=== PATIENT | male | born 1935 | race Caucasian/White ===

== ENCOUNTER 2016-07-15 18:56 | Emergency (ER) | payer MEDICARE, BC ==
[2016-07-15] MEDS ORDERED: DIPHTH,PERTUSS(ACELL),TET VAC 0.5 ML VIAL IM ONE ×2 (19:49→20:18)
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
--- OUTSIDE RECORDS SUMMARY | 2016-07-15 19:50 | XMS REPORT | Continuity of Care Document ---
:1935 Author Organization [facility] ([facility]) [place] [address] Phone [phone] Care Team Providers Name Role Phone Suresh Delarosa Primary Care Provider [phone] Source Comments This disclosure is being made pursuant to the Care Everywhere program, applicable federal and state laws, and may not contain all informaitonavailable regarding this patient.[facility] ([facility]) Active Allergies and Adverse Reactions Allergen Noted Date Severity Reactions Comments Iodinated Contrast Media - 12/11/2015 OTHER When pt had contrast his Oral And Iv Dye kidney function "decreased quite a bit" per patient and his . Current Medications Prescription Sig. Disp. Refills Start Date End Date Status rosuvastatin (CRESTOR) 10 Take 5 mg by Active mg tablet mouth every evening. lisinopril 20 mg tablet Take 20 mg by Active mouth 2 times daily. MULTIVITAMIN PO Take by mouth Active daily. ketorolac 0.4 % instill 1 Drop 1 Bottle 4 04/03/2011 Active ophthalmic solution onto the left eye 4 times daily. Indications: Post-Op Ocular Inflammation clopidogrel 75 mg tablet Take 75 mg by Active mouth daily. albuterol 90 Use 2 Puffs by Active mcg/Actuation inhaler inhalation. amiodarone 200 mg tablet Take 200 mg by 07/18/2015 Active mouth. 7 aspirin 81 mg EC tablet Take 81 mg by Active mouth. clindamycin 300 mg 05/22/2015 Active capsule furosemide 40 mg tablet Take 40 mg by Active mouth. hydrochlorothiazide 25 mg TAKE ONE TABLET 11/11/2015 Active tablet DAILY insulin lispro (HumaLOG) Inject 12 Units Active 100 unit/mL injection subcutaneously. vial nitroglycerin 0.2 mg/hr Apply 1 Patch on 11/21/2015 Active patch the skin. 7 rivaroxaban (XARELTO) 15 Take 15 mg by Active mg tablet mouth. SUPPLY TRUETEST blood 05/26/2015 Active glucose test strip insulin glargine (LANTUS) Inject 19 Units Active 100 unit/mL injection subcutaneously. vial isosorbide mononitrate 60 Take 60 mg by Active mg CR tablet mouth. metoPROLol tartrate 50 mg Take 50 mg by 07/18/2015 Active tablet mouth. ranolazine (RANEXA) 500 Take 500 mg by Active mg XR tablet mouth. EASY TOUCH 31 X 5/16 " Use as directed 5 10/19/2015 Active ndle daily with insulin. Dx E11.65 tamsulosin 0.4 mg capsule Take 0.4 mg by 11 11/12/2015 Active mouth at bedtime. finasteride 5 mg tablet Take 5 mg by 11/12/2015 Active mouth at bedtime. hydrochlorothiazide 25 mg 25 mg daily. 3 11/11/2015 Active tablet Active Problems Problem Noted Date AVB (atrioventricular block) 04/21/2016 Chronic atrial fibrillation 04/21/2016 Diabetes 05/21/2015 Coronary artery disease 05/21/2015 Paroxysmal VT, non sustained 05/21/2015 Bilateral carotid bruits 05/21/2015 Bi-ventricular pacemaker in situ 03/06/2011 CHF (congestive heart failure) 03/06/2011 IDDM (insulin dependent diabetes mellitus) 03/06/2011 HTN (hypertension) 03/06/2011 HLD (hyperlipidemia) 03/06/2011 Nuclear sclerosis 03/06/2011 Most Recent Encounters Date Type Specialty Providers Description 07/08/2016 Telephone Heart and Vascular Giuliano Samuel MD Chief Comp: Other 04/21/2016 Office Visit Heart and Vascular Glenna Wilkinson [employer]GLISH [employer] Dx: Bi-ventricular Giuliano Samuel MD pacemaker in situ (Primary Dx) Social History Tobacco Use Types Packs/Day Years Used Date Former Smoker Alcohol Use Drinks/Week oz/Week Comments Yes social Last Filed Vital Signs Vital Sign Reading Time Taken Blood Pressure 134/60 04/21/2016 10:20 AM REFORMATORY ATTENDANT Pulse 68 04/21/2016 10:20 AM REFORMATORY ATTENDANT Temperature 36.2 C (97.2 F) 04/29/2011 7:37 AM REFORMATORY ATTENDANT Respiratory Rate 20 04/29/2011 7:45 AM REFORMATORY ATTENDANT Height 1.854 m (6' 0.99") 04/21/2016 10:20 AM REFORMATORY ATTENDANT Weight 97.07 kg (214 lb) 04/21/2016 10:20 AM REFORMATORY ATTENDANT Body Mass Index 28.24 04/21/2016 10:20 AM REFORMATORY ATTENDANT Oxygen Saturation 100% 04/29/2011 7:45 AM REFORMATORY ATTENDANT Plan of Care Date Type Specialty Providers Description 11/17/2016 Appointment Heart and Vascular Giuliano Samuel MD Chief Comp: Patient [address] [place] [address] Visit [phone] (Fax) 12/17/2016 Appointment Ophthalmology - Lalito Crockett MD Chief Comp: Patient Specialty [address] [place] [address] Visit [phone] (Fax) Health Maintenance Due Date Last Done Comments Hepatitis B Vaccine (1 of 3 - 1935 Primary Series) Tdap Vaccine 1946 DIABETIC: Cholesterol 1952 Diabetic: Hdl 1952 DIABETIC: Hemoglobin A1C 1952 Diabetic: Ldl 1952 DIABETIC: Microalbumin 1952 DIABETIC: Triglycerides 1953 Td Vaccine 1953 Colonoscopy 12/03/1984 Zoster Vaccine 1994 Pneumococcal Vaccine (1 of 2 12/05/1999 - PCV13) DIABETIC: Foot Exam 04/21/2011 Influenza Vaccine: Seasonal 12/02/2015 (#1) [facility] Annual Coding Diabetes 05/03/2016 12/11/2015, Additional history exists without Complication 05/21/2015, 03/06/2011 DIABETIC: Retinal Eye Exam 12/10/2016 12/11/2015 Results from Last 3 Months Not on file
--- OUTSIDE RECORDS SUMMARY | 2016-07-15 19:51 | XMS REPORT | Summary of Care ---
:1935 Author Organization [facility] Address [address] [place] [address] Care Team Providers Name Role Phone Suresh Delarosa Primary Care Physician Encounter Date(s): 10/01/15 - 10/01/15 [facility], [address] [place] [id number] Discharge Diagnosis: Hypertension Discharge Diagnosis: DM - Diabetes mellitus Discharge Disposition: Discharged to Home or Self Care Attending Physician: Suresh Delarosa MD Referring Physician: Suresh Delarosa MD Vital Signs No data available for this section Problem List Condition Effective Dates Status Health Status Informant stable Angina pectoris(Confirmed) Active bilateral Carotid bruit(Confirmed) Active transient CHF - Congestive heart Active failure(Confirmed) DM - Diabetes mellitus(Confirmed) Active 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) Hyperlipidemia(Confirmed) Active Hypertension(Confirmed) Active PVD - Peripheral vascular Active disease(Confirmed) Allergies, Adverse Reactions, Alerts Substance Reaction Severity Status contrast media (iodine-based) Active Medications albuterol 2.5 mg/3 mL (0.083%) inhalation solution 3 mL, Inhale, QID, 0 Refill(s) Start Date: 09/11/13 Status: Orderedaspirin 81 mg oral tablet 1 tab(s), Oral, Daily, 0 Refill(s) Start Date: 09/11/13 Status: OrderedAzithromycin 5 Day Dose Pack 250 mg oral tablet 1 packet(s), Oral, Per Package Label, as directed on package labeling, # 6 tab(s ), 0 Refill(s), Start Date: 09/22/14 10:39:00 CDT, Pharmacy: [place], [place] Special Instructions: as directed on package labeling Start Date: 09/22/14 Stop Date: 11/28/14 Status: DiscontinuedCentrum Silver oral tablet 1 tab(s), Oral, Daily, 0 Refill(s) Start Date: 09/11/13 Status: OrderedCrestor 10 mg oral tablet 1 tab(s), Oral, Daily, # 21 tab(s), 0 Refill(s), Start Date: 03/26/14 10:31:00 INTERNATIONAL LOGISTICS MANAGER, samples given to patient (Rx), [id number], 07/30/16 Start Date: 03/26/14 Status: OrderedCrestor 10 mg oral tablet 1 tab(s), Oral, Daily, # 30 tab(s), 0 Refill(s), Start Date: 03/26/14 10:30:00 INTERNATIONAL LOGISTICS MANAGER Start Date: 03/26/14 Stop Date: 03/26/14 Status: DiscontinuedCrestor 10 mg oral tablet 1 tab(s), Oral, Daily, # 7 tab(s), 0 Refill(s), Start Date: 03/26/14 10:30:00 INTERNATIONAL LOGISTICS MANAGER, samples given to patient (Rx), [id number], 12/31/15 Start Date: 03/26/14 Status: OrderedCrestor 10 mg oral tablet 1 tab(s), Oral, Daily, 0 Refill(s) Start Date: 09/11/13 Stop Date: 03/26/14 Status: Discontinueddiltiazem 180 mg/24 hours oral capsule, extended release 1 cap(s), Oral, Daily, 0 Refill(s) Start Date: 09/11/13 Stop Date: 03/21/14 Status: Discontinuedfinasteride 5 mg oral tablet 1 tab(s), Oral, HS, # 1 tab(s), 1 Refill(s), Start Date: 09/04/14 14:50:55 CDT, Pharmacy: [place], [place] Start Date: 09/04/14 Stop Date: 11/05/14 Status: Completedfinasteride 5 mg oral tablet 1 tab(s), Oral, HS, # 30 tab(s), 11 Refill(s), Start Date: 11/05/14 11:05:09 CDT , Pharmacy: [place], [place] Start Date: 11/05/14 Status: Orderedfinasteride 5 mg oral tablet 1 tab(s), Oral, HS, # 30 tab(s), 11 Refill(s), Start Date: 09/08/13 16:49:00 CDT , Pharmacy: [facility] Start Date: 09/08/13 Stop Date: 09/04/14 Status: Completedglimepiride 4 mg oral tablet 1 tab(s), Oral, BID, 0 Refill(s) Start Date: 09/11/13 Stop Date: 10/25/13 Status: Discontinuedglimepiride 4 mg oral tablet 1 tab(s), Oral, BID, # 180 tab(s), 1 Refill(s), Start Date: 04/19/14 15:17:24 INTERNATIONAL LOGISTICS MANAGER, Pharmacy: [place], [place] Start Date: 04/19/14 Stop Date: 09/18/14 Status: Discontinuedglimepiride 4 mg oral tablet 1 tab(s), Oral, BID, # 180 tab(s), 1 Refill(s), Start Date: 10/25/13 15:56:00 CDT, Pharmacy: [facility] Start Date: 10/25/13 Stop Date: 04/19/14 Status: CompletedHumaLOG KwikPen 100 units/mL subcutaneous solution See Instructions, SS with ac coverage: 70-149-7 units 150-199-9 units 200- 249-11 units 250-299-13 units 300-349-15 units 350-399-17 units, # 10 mL, 5 Refill(s), Start Date: 10/01/15 11:39:00 CDT Special Instructions: SS with ac coverage: 70-149-7 units 150-199-9 units 200- 249-11 units 250-299-13 units 300-349-15 units 350-399-17 units Start Date: 10/01/15 Status: OrderedHumaLOG KwikPen 100 units/mL subcutaneous solution See Instructions, SS with ac coverage: BS<150 - 0 units, BS 150-200 4 units, BS 201-250 6 units BS 251-300 8 units, BS 301-350 10 units, BS 351-400 12 units, # 10 mL, 11 Refill(s), Start Date: 09/18/14 15:31:00 CDT, [facility] Special Instructions: SS with ac coverage: BS<150 - 0 units, BS 150-200 4 units , BS 201-250 6 units BS 251-300 8 units, BS 301-350 10 units, BS 351-400 12 units Start Date: 09/18/14 Stop Date: 10/01/15 Status: Discontinuedhydrochlorothiazide 25 mg oral tablet 1 tab(s), Oral, Daily, 0 Refill(s) Start Date: 09/11/13 Status: Orderedinsulin glargine 100 units/mL subcutaneous solution 15 units, Subcutaneous, Daily, 0 Refill(s), Start Date: 09/11/13 10:45:00 CDT Start Date: 09/11/13 Stop Date: 03/26/14 Status: DiscontinuedInsulin Pen [place] 07/16" 31G 300 Pen [place], Subcutaneous, TID, # 3 boxes, 0 Refill(s), Pharmacy: [place], [place], Supply Start Date: 09/18/14 Stop Date: 12/17/14 Status: Orderedisosorbide mononitrate 120 mg oral tablet, extended release 0.5 tab, Oral, BID, # 30 tab(s), 5 Refill(s), Start Date: 09/16/15 14:16:43 CDT , Pharmacy: [place] Start Date: 09/16/15 Status: Orderedisosorbide mononitrate 120 mg oral tablet, extended release 0.5 tab, Oral, BID, # 30 tab(s), 5 Refill(s), Start Date: 02/07/15 16:33:55 CDT , Pharmacy: [place] Start Date: 02/07/15 Stop Date: 09/16/15 Status: Completedisosorbide mononitrate 120 mg oral tablet, extended release 0.5 tab, Oral, BID, # 30 tab(s), 5 Refill(s), Start Date: 06/18/14 16:13:00 INTERNATIONAL LOGISTICS MANAGER , Pharmacy: [place] Start Date: 06/18/14 Stop Date: 02/07/15 Status: Completedisosorbide mononitrate 60 mg oral tablet, extended release 1.5 tab(s), Oral, BID, 0 Refill(s) Start Date: 09/11/13 Stop Date: 06/18/14 Status: DiscontinuedLantus 100 units/mL subcutaneous solution 19 units, Subcutaneous, Daily, dosage increase, # 10 mL, 5 Refill(s), Start Date : 08/21/14 17:47:00 CDT, Pharmacy: [place], [place] Special Instructions: dosage increase Start Date: 08/21/14 Stop Date: 03/14/15 Status: DiscontinuedLantus 100 units/mL subcutaneous solution 10 units, Subcutaneous, Daily, # 10 mL, 0 Refill(s), Start Date: 08/21/14 17:47: 00 CDT Start Date: 08/21/14 Stop Date: 08/21/14 Status: DiscontinuedLantus Solostar Pen 100 units/mL subcutaneous solution 19 units, Subcutaneous, Daily, # 15 mL, 5 Refill(s), Start Date: 03/14/15 10:28: 00 INTERNATIONAL LOGISTICS MANAGER, Pharmacy: [place] Start Date: 03/14/15 Status: OrderedLantus Solostar Pen 100 units/mL subcutaneous solution 19 units, Subcutaneous, Daily, # 3 mL, 0 Refill(s), Start Date: 03/14/15 10:28: 00 INTERNATIONAL LOGISTICS MANAGER Start Date: 03/14/15 Stop Date: 03/14/15 Status: DiscontinuedLantus Solostar Pen 100 units/mL subcutaneous solution 19 units, Subcutaneous, Daily, dosage increase, # 15 mL, 0 Refill(s), Start Date : 04/06/14 15:28:25 INTERNATIONAL LOGISTICS MANAGER, [id number], 08/30/16 Special Instructions: dosage increase Start Date: 04/06/14 Stop Date: 08/20/14 Status: CompletedLantus Solostar Pen 100 units/mL subcutaneous solution 0.1 mL, Subcutaneous, Daily, # 6 mL, 0 Refill(s), Start Date: 03/26/14 10:28:00 INTERNATIONAL LOGISTICS MANAGER, samples given to patient (Rx), [id number], 08/30/16 Start Date: 03/26/14 Stop Date: 04/06/14 Status: CompletedLantus Solostar Pen 100 units/mL subcutaneous solution 10 units, Subcutaneous, Daily, # 3 mL, 0 Refill(s), Start Date: 03/26/14 10:28: 00 INTERNATIONAL LOGISTICS MANAGER Start Date: 03/26/14 Stop Date: 03/26/14 Status: DiscontinuedLantus Solostar Pen 100 units/mL subcutaneous solution 19 units, Subcutaneous, Daily, dosage increase, # 15 mL, 5 Refill(s), Start Date : 08/20/14 15:46:13 CDT, Pharmacy: [place], [id number], 08/30 Special Instructions: dosage increase Start Date: 08/20/14 Stop Date: 08/21/14 Status: Discontinuedlisinopril 20 mg oral tablet 1 tab(s), Oral, BID, 0 Refill(s) Start Date: 09/11/13 Stop Date: 06/26/14 Status: Discontinuedlisinopril 5 mg oral tablet 1 tab(s), Oral, Daily, # 90 tab(s), 1 Refill(s), Start Date: 06/25/15 18:07:13 INTERNATIONAL LOGISTICS MANAGER, Pharmacy: [place] Start Date: 06/25/15 Status: Orderedlisinopril 5 mg oral tablet 1 tab(s), Oral, Daily, # 90 tab(s), 1 Refill(s), Start Date: 11/28/14 14:34:08 CDT, Pharmacy: [place] Start Date: 11/28/14 Stop Date: 06/25/15 Status: Completedlisinopril 5 mg oral tablet 1 tab(s), Oral, Daily, # 90 tab(s), 1 Refill(s), Start Date: 06/26/14 17:19:00 INTERNATIONAL LOGISTICS MANAGER, Pharmacy: [place] Start Date: 06/26/14 Stop Date: 11/28/14 Status: CompletedMetoprolol Tartrate 50 mg oral tablet tab(s), Oral, BID, 1 in the a.m. and 1.5 in pm, 0 Refill(s) Special Instructions: 1 in the a.m. and 1.5 in pm Start Date: 09/11/13 Status: Orderednitroglycerin 0.4 mg/dose Translingual [place] nitroglycerin 0.4 mg/dose Translingual [place], place 1 spray (0.4MG) by translingual route onto or under the tongue at the first sign of an attack; no more than 3 sprays are recommended within a 15 minute period, 0 Refill(s) Special Instructions: place 1 spray (0.4MG) by translingual route onto or under the tongue at the first sign of an attack; no more than 3 sprays are recommended within a 15 minute period Start Date: 09/11/13 Status: OrderedOne Touch Ultra Blue Test Strips See Instructions, Test blood sugars Subcutaneous TID. Dx: 250.00, # 100 EA, 5 Refill(s), Pharmacy: [place], [place], Supply Special Instructions: Test blood sugars Subcutaneous TID. Dx: 250.00 Start Date: 01/08/15 Status: OrderedOne Touch Ultra Blue Test Strips 300 EA, Subcutaneous, TID, # 3 boxes, 0 Refill(s), Supply Start Date: 01/08/15 Stop Date: 01/08/15 Status: DiscontinuedOne Touch Ultra Test Strips One Touch Ultra Test Strips, 0 Refill(s) Start Date: 09/11/13 Stop Date: 01/08/15 Status: DiscontinuedOne Touch UltraSoft Lancets One Touch UltraSoft Lancets, 0 Refill(s) Start Date: 09/11/13 Stop Date: 01/08/15 Status: DiscontinuedOne Touch UltraSoft Lancets See Instructions, Test blood sugars Subcutaneous TID. Dx: 250.00, # 100 EA, 5 Refill(s), Pharmacy: [place], [place], Supply Special Instructions: Test blood sugars Subcutaneous TID. Dx: 250.00 Start Date: 01/08/15 Status: OrderedOne Touch UltraSoft Lancets 300 EA, Subcutaneous, TID, # 3 boxes, 0 Refill(s), Supply Start Date: 01/08/15 Stop Date: 01/08/15 Status: DiscontinuedPen [place] Short 31G 8mm See Instructions, Use as directed daily with insulin. Dx: E11.65, # 100 EA, 5 Refill(s), Pharmacy: [place], [place], Supply Special Instructions: Use as directed daily with insulin. Dx: E11.65 Start Date: 07/31/15 Status: OrderedPen [place] Short 31G 8mm 400 EA, Subcutaneous, QID, # 4 boxes, 0 Refill(s), Supply Start Date: 07/31/15 Stop Date: 07/31/15 Status: DiscontinuedPlavix 75 mg oral tablet 1 tab(s), Oral, Daily, # 90 tab(s), 1 Refill(s), Start Date: 12/06/14 17:04:00 CDT, Pharmacy: [place] Start Date: 12/06/14 Status: OrderedPlavix 75 mg oral tablet 1 tab(s), Oral, Daily, # 30 tab(s), 0 Refill(s), Start Date: 12/06/14 17:04:00 CDT Start Date: 12/06/14 Stop Date: 12/06/14 Status: DiscontinuedRanexa 1000 mg oral tablet, extended release 1 tab(s), Oral, BID, # 60 tab(s), 0 Refill(s), Start Date: 03/21/14 13:17:00 INTERNATIONAL LOGISTICS MANAGER Start Date: 03/21/14 Status: Orderedtamsulosin 0.4 mg oral capsule 1 cap(s), Oral, HS, 0 Refill(s) Start Date: 09/11/13 Stop Date: 09/04/14 Status: Discontinuedtamsulosin 0.4 mg oral capsule 1 cap(s), Oral, HS, # 30 cap(s), 1 Refill(s), Start Date: 09/04/14 14:50:00 CDT , Pharmacy: [place] Start Date: 09/04/14 Stop Date: 11/05/14 Status: Completedtamsulosin 0.4 mg oral capsule 1 cap(s), Oral, HS, # 30 cap(s), 11 Refill(s), Start Date: 11/05/14 11:05:58 CDT , Pharmacy: [place] Start Date: 11/05/14 Status: Orderedvitamin E 400 intl units oral capsule cap(s), Oral, 0 Refill(s) Start Date: 09/11/13 Status: Ordered Results No data available for this section Immunizations Vaccine Date Refusal Reason influenza virus vaccine, inactivated1 03/21/14 1Result Comment: Pt tolerates the injection well with no adverse reactions. Procedures Procedure Date Related Diagnosis Body Site 5 vessel bypass 8 Angioplasties Cardiac pacemaker right Knee replacement Social History No data available for this section Assessment and Plan No data available for this section
--- OUTSIDE RECORDS SUMMARY | 2016-07-15 19:51 | XMS REPORT | Summary of Care ---
:[address] [facility] Address [facility] [place] [address]- Care Team Providers Name Role Phone Suresh Delarosa Primary Care Physician Encounter Date(s): 10/01/15 - 10/01/[address] [address] [[email or web address] Final: Type 2 diabetes mellitus without complications Final: Essential (primary) hypertension Discharge Disposition: 01 Discharged to Home or Self Care Attending Physician: Suresh Delarosa MD Admitting Physician: Suresh Delarosa MD Vital Signs No [...] Refill(s), Start Date: 09/22/14 10:39:00 CDT, Pharmacy: [place], [place] Special Instructions: as directed on package labeling Start Date: 09/22/14 Stop Date: 11/28/14 Status: DiscontinuedCentrum Silver oral tablet 1 tab(s), Oral, Daily, 0 Refill(s) Start Date: 09/11/13 Status: OrderedCrestor 10 mg oral tablet 1 tab(s), Oral, Daily, # 21 tab(s), 0 Refill(s), Start Date: 03/26/14 10:31:00 MACHINE FARMWORKER, samples given to patient (Rx), [id number], 07/30/16 Start Date: 03/26/14 Status: OrderedCrestor 10 mg oral tablet 1 tab(s), Oral, Daily, # 30 tab(s), 0 Refill(s), Start Date: 03/26/14 10:30:00 MACHINE FARMWORKER Start Date: 03/26/14 Stop Date: 03/26/14 Status: DiscontinuedCrestor 10 mg oral tablet 1 tab(s), Oral, Daily, # 7 tab(s), 0 Refill(s), Start Date: 03/26/14 10:30:00 MACHINE FARMWORKER, samples given to patient (Rx), [id number], 12/31/15 Start Date: 03/26/14 Status: OrderedCrestor 10 [...] Refill(s), Start Date: 09/04/14 14:50:55 CDT, Pharmacy: [place], [place] Start Date: 09/04/14 Stop Date: 11/05/14 Status: Completedfinasteride 5 mg oral tablet 1 tab(s), Oral, HS, # 30 tab(s), 11 Refill(s), Start Date: 11/05/14 11:05:09 CDT , Pharmacy: [place] Start Date: 11/05/14 Status: Orderedfinasteride 5 [...] tab(s), 1 Refill(s), Start Date: 04/19/14 15:17:24 MACHINE FARMWORKER, Pharmacy: [place] Start Date: 04/19/14 Stop Date: 09/18/14 [...] Refill(s), Start Date: 09/18/14 15:31:00 CDT, Pharmacy: [facility]... Special Instructions: SS with ac coverage: BS<150 [...] 09/11/13 Stop Date: 03/26/14 Status: DiscontinuedInsulin Pen [place] 07/16" 31G 300 Pen [place], Subcutaneous, TID, # 3 boxes, 0 Refill(s), Pharmacy: [place], [place], Supply Start Date: 09/18/14 Stop Date: 12/17/14 Status: Orderedisosorbide mononitrate 120 mg oral tablet, extended release 0.5 tab, Oral, BID, # 30 tab(s), 5 Refill(s), Start Date: 09/16/15 14:16:43 CDT , Pharmacy: [place] Start Date: 09/16/15 Status: Orderedisosorbide mononitrate 120 mg oral tablet, extended release 0.5 tab, Oral, BID, # 30 tab(s), 5 Refill(s), Start Date: 02/07/15 16:33:55 CDT , Pharmacy: [place] Start Date: 02/07/15 Stop Date: 09/16/15 Status: Completedisosorbide mononitrate 120 mg oral tablet, extended release 0.5 tab, Oral, BID, # 30 tab(s), 5 Refill(s), Start Date: 06/18/14 16:13:00 MACHINE FARMWORKER , Pharmacy: [place] Start Date: 06/18/14 Stop Date: 02/07/15 Status: Completedisosorbide mononitrate 60 mg oral tablet, extended release 1.5 tab(s), Oral, BID, 0 Refill(s) Start Date: 09/11/13 Stop Date: 06/18/14 Status: DiscontinuedLantus 100 units/mL subcutaneous solution 19 units, Subcutaneous, Daily, dosage increase, # 10 mL, 5 Refill(s), Start Date : 08/21/14 17:47:00 CDT, Pharmacy: [place] Special Instructions: dosage increase Start Date: 08/21/14 Stop Date: 03/14/15 Status: DiscontinuedLantus 100 units/mL subcutaneous solution 10 units, Subcutaneous, Daily, # 10 mL, 0 Refill(s), Start Date: 08/21/14 17:47: 00 CDT Start Date: 08/21/14 Stop Date: 08/21/14 Status: DiscontinuedLantus Solostar Pen 100 units/mL subcutaneous solution 19 units, Subcutaneous, Daily, # 15 mL, 5 Refill(s), Start Date: 03/14/15 10:28: 00 MACHINE FARMWORKER, Pharmacy: [place] Start Date: 03/14/15 Status: OrderedLantus Solostar Pen 100 units/mL subcutaneous solution 19 units, Subcutaneous, Daily, # 3 mL, 0 Refill(s), Start Date: 03/14/15 10:28: 00 MACHINE FARMWORKER Start Date: 03/14/15 Stop Date: 03/14/15 Status: DiscontinuedLantus Solostar Pen 100 units/mL subcutaneous solution 19 units, Subcutaneous, Daily, dosage increase, # 15 mL, 0 Refill(s), Start Date : 04/06/14 15:28:25 MACHINE FARMWORKER, [id number], 08/30/16 Special Instructions: dosage increase Start Date: 04/06/14 Stop Date: 08/20/14 Status: CompletedLantus Solostar Pen 100 units/mL subcutaneous solution 0.1 mL, Subcutaneous, Daily, # 6 mL, 0 Refill(s), Start Date: 03/26/14 10:28:00 MACHINE FARMWORKER, samples given to patient (Rx), [id number], 08/30/16 Start Date: 03/26/14 Stop Date: 04/06/14 Status: CompletedLantus Solostar Pen 100 units/mL subcutaneous solution 10 units, Subcutaneous, Daily, # 3 mL, 0 Refill(s), Start Date: 03/26/14 10:28: 00 MACHINE FARMWORKER Start Date: 03/26/14 Stop Date: 03/26/14 Status: DiscontinuedLantus Solostar Pen 100 units/mL subcutaneous solution 19 units, Subcutaneous, Daily, dosage increase, # 15 mL, 5 Refill(s), Start Date : 08/20/14 15:46:13 CDT, Pharmacy: [place], [place], [id number], 08/30 Special Instructions: dosage increase Start Date: 08/20/14 Stop Date: 08/21/14 Status: Discontinuedlisinopril 20 mg oral tablet 1 tab(s), Oral, BID, 0 Refill(s) Start Date: 09/11/13 Stop Date: 06/26/14 Status: Discontinuedlisinopril 5 mg oral tablet 1 tab(s), Oral, Daily, # 90 tab(s), 1 Refill(s), Start Date: 06/25/15 18:07:13 MACHINE FARMWORKER, Pharmacy: [place] Start Date: 06/25/15 Status: Orderedlisinopril 5 mg oral tablet 1 tab(s), Oral, Daily, # 90 tab(s), 1 Refill(s), Start Date: 11/28/14 14:34:08 CDT, Pharmacy: [place] Start Date: 11/28/14 Stop Date: 06/25/15 Status: Completedlisinopril 5 mg oral tablet 1 tab(s), Oral, Daily, # 90 tab(s), 1 Refill(s), Start Date: 06/26/14 17:19:00 MACHINE FARMWORKER, Pharmacy: [place] Start Date: 06/26/14 Stop Date: 11/28/14 Status: CompletedMetoprolol Tartrate 50 mg oral tablet tab(s), Oral, BID, 1 in the a.m. and 1.5 in pm, 0 Refill(s) Special Instructions: 1 in the a.m. and 1.5 in pm Start Date: 09/11/13 Status: Orderednitroglycerin 0.4 mg/dose Translingual [place] nitroglycerin 0.4 mg/dose Translingual [place], place 1 spray (0.4MG) by translingual route [...] 250.00, # 100 EA, 5 Refill(s), Pharmacy: [place], [place], Supply Special Instructions: Test blood sugars [...] 250.00, # 100 EA, 5 Refill(s), Pharmacy: [place], Supply Special Instructions: Test blood sugars Subcutaneous TID. Dx: 250.00 Start Date: 01/08/15 Status: OrderedOne Touch UltraSoft Lancets 300 EA, Subcutaneous, TID, # 3 boxes, 0 Refill(s), Supply Start Date: 01/08/15 Stop Date: 01/08/15 Status: DiscontinuedPen [place] Short 31G 8mm See Instructions, Use as directed daily with insulin. Dx: E11.65, # 100 EA, 5 Refill(s), Pharmacy: [place], Supply Special Instructions: Use as directed daily with insulin. Dx: E11.65 Start Date: 07/31/15 Status: OrderedPen [place] Short 31G 8mm 400 EA, Subcutaneous, QID, # 4 boxes, 0 Refill(s), Supply Start Date: 07/31/15 Stop Date: 07/31/15 Status: DiscontinuedPlavix 75 mg oral tablet 1 tab(s), Oral, Daily, # 90 tab(s), 1 Refill(s), Start Date: 12/06/14 17:04:00 CDT, Pharmacy: [place] Start Date: 12/06/14 Status: OrderedPlavix 75 mg oral tablet 1 tab(s), Oral, Daily, # 30 tab(s), 0 Refill(s), Start Date: 12/06/14 17:04:00 CDT Start Date: 12/06/14 Stop Date: 12/06/14 Status: DiscontinuedRanexa 1000 mg oral tablet, extended release 1 tab(s), Oral, BID, # 60 tab(s), 0 Refill(s), Start Date: 03/21/14 13:17:00 MACHINE FARMWORKER Start Date: 03/21/14 Status: Orderedtamsulosin 0.4 mg oral capsule 1 cap(s), Oral, HS, 0 Refill(s) Start Date: 09/11/13 Stop Date: 09/04/14 Status: Discontinuedtamsulosin 0.4 mg oral capsule 1 cap(s), Oral, HS, # 30 cap(s), 1 Refill(s), Start Date: 09/04/14 14:50:00 CDT , Pharmacy: [place] Start Date: 09/04/14 Stop Date: 11/05/14 Status: Completedtamsulosin 0.4 mg oral capsule 1 cap(s), Oral, HS, # 30 cap(s), 11 Refill(s), Start Date: 11/05/14 11:05:58 CDT , Pharmacy: [place] Start Date: 11/05/14 Status: Orderedvitamin E 400 intl units oral capsule cap(s), Oral, 0 Refill(s) Start Date: 09/11/13 Status: Ordered Results Patient Viewable Results Most recent to oldest [Reference Range]: 1 Sodium Lvl [135-144 mEq/L] 138 mEq/L (10/01/15 12:25 PM) Potassium Lvl [3.3-4.8 mEq/L] 4.7 mEq/L (10/01/15 12:25 PM) Chloride Lvl [98-107 mEq/L] 99 mEq/L (10/01/15 12:25 PM) Bicarbonate Lvl [22-30 mmol/L] 27 mmol/L (10/01/15 12:25 PM) Anion Gap [10.0-20.0] 16.7 (10/01/15 12:25 PM) Glucose Lvl [70-108 mg/dL] 219 mg/dL *HI* (10/01/15 12:25 PM) BUN [7-21 mg/dL] 34 mg/dL *HI* (10/01/15 12:25 PM) Creatinine Lvl [0.50-1.20 mg/dL] 1.66 mg/dL *HI* (10/01/15 12:25 PM) BUN/Creat Ratio 20.5 *NA* (10/01/15 12:25 PM) eGFR AA [>=60] 49 *LOW* (10/01/15 12:25 PM) eGFR RAMÍREZ [>=60] 40 *LOW* (10/01/15 12:25 PM) Calcium Lvl [8.6-10.2 mg/dL] 9.1 mg/dL (10/01/15 12:25 PM) Glycated Hemoglobin [4.8-6.0 %] 7.8 % *HI* (10/01/15 12:25 PM) Estimated Average Glucose 177 mg/dL *NA* (10/01/15 12:25 PM) Estimated Creatinine Clearance 41.91 mL/min (10/01/15 1:00 PM) Immunizations Vaccine Date Refusal Reason influenza virus vaccine, inactivated1 03/21/14 1Result Comment: Pt tolerates the injection well with no adverse reactions. Procedures Procedure Date Related Diagnosis Body Site 5 vessel bypass 8 Angioplasties Cardiac pacemaker right Knee replacement Social History No data available for this section Assessment and Plan No data available for this section
[2016-07-15 23:53] VITALS: BP 104/52
== END 2016-07-15 20:25 | disposition home or self-care (01) ==
LOC: ER 18:56
PROC: 0JQ00ZZ Repair Scalp Subcutaneous Tissue and Fascia, Open Approach (ICD-10-PCS; principal; 2016-07-15)
DX: S01.01XA Laceration without foreign body of scalp, initial encounter (principal); W00.0XXA Fall on same level due to ice and snow, initial encounter; Z91.81 History of falling; Y93.9 Activity, unspecified; Y92.9 Unspecified place or not applicable; Y99.9 Unspecified external cause status; S09.90XA Unspecified injury of head, initial encounter; Z23 Encounter for immunization; I48.91 Unspecified atrial fibrillation; E78.5 Hyperlipidemia, unspecified; I10 Essential (primary) hypertension; I50.9 Heart failure, unspecified; E11.9 Type 2 diabetes mellitus without complications

== ENCOUNTER 2016-07-22 13:02 | Emergency (ER) | payer MEDICARE, BC ==
[2016-07-22 13:02] VITALS: BP 104/52
--- OUTSIDE RECORDS SUMMARY | 2016-07-22 14:08 | XMS REPORT | Continuity of Care Document ---
:1935 Author Organization [facility] ([facility]) [place] [address] Phone [phone] Care Team Providers Name Role Phone Suresh Delarosa Primary Care Provider [phone] Source Comments This disclosure is being made pursuant to the Care Everywhere program, applicable federal and state laws, and may not contain all informaitonavailable regarding this patient.[facility] ([facility]) Active Allergies and Adverse Reactions Allergen Noted Date Severity Reactions Comments Iodinated Contrast Media - 12/11/2015 OTHER When pt had contrast his Oral And Iv Dye kidney function "decreased quite a bit" per patient and his . Current Medications Prescription Sig. Disp. Refills Start Date End Date Status rosuvastatin (CRESTOR) Take 5 mg by Active 10 mg tablet mouth every evening. lisinopril 20 [...] 2 Puffs by Active mcg/Actuation inhaler inhalation. aspirin 81 mg EC tablet Take 81 mg by Active mouth. clindamycin 300 mg 05/22/2015 Active capsule furosemide 40 mg tablet Take 40 mg by Active mouth. hydrochlorothiazide 25 TAKE ONE TABLET 11/11/2015 Active mg tablet DAILY insulin lispro (HumaLOG) Inject 12 Units Active 100 unit/mL injection subcutaneously. vial nitroglycerin 0.2 mg/hr Apply 1 Patch on 11/21/2015 Active patch the skin. 7 rivaroxaban (XARELTO) 15 Take 15 mg by Active mg tablet mouth. SUPPLY TRUETEST blood 05/26/2015 Active glucose test strip insulin glargine Inject 19 Units Active (LANTUS) 100 unit/mL subcutaneously. injection vial isosorbide mononitrate Take 60 mg by Active 60 mg CR tablet mouth. metoPROLol tartrate 50 Take 50 mg by 07/18/2015 Active mg tablet mouth. ranolazine (RANEXA) 500 Take 500 mg by Active mg XR tablet mouth. EASY TOUCH 31 X 5/16 " Use as directed 5 10/19/2015 Active ndle daily with insulin. Dx E11.65 tamsulosin 0.4 mg Take 0.4 mg by 11/12/2015 Active capsule mouth at bedtime. finasteride 5 mg tablet Take 5 mg by 11/12/2015 Active mouth at bedtime. hydrochlorothiazide 25 25 mg daily. 3 11/11/2015 Active mg tablet amiodarone 200 mg tablet Take 200 mg by 07/18/2015 mouth. 7 Active Problems Problem Noted Date AVB (atrioventricular [...] Vascular Giuliano Samuel MD Chief Comp: Other Social History Tobacco Use Types Packs/Day Years Used Date Former Smoker Alcohol Use Drinks/Week oz/Week Comments Yes social Last Filed Vital Signs Vital Sign Reading Time Taken Blood Pressure 134/60 04/21/2016 10:20 AM YARN [facility]BER Pulse 68 04/21/2016 10:20 AM [facility] [employer] Temperature 36.2 C (97.2 F) 04/29/2011 7:37 AM YARN COMBER Respiratory Rate 20 04/29/2011 7:45 AM YARN COMBER Height 1.854 m (6' 0.99") 04/21/2016 10:20 AM YARN COMBER Weight 97.07 kg (214 lb) 04/21/2016 10:20 AM YARN COMBER Body Mass Index 28.24 04/21/2016 10:20 AM YARN COMBER Oxygen Saturation 100% 04/29/2011 7:45 AM YARN COMBER Plan of Care Date Type Specialty Providers Description 11/17/2016 Appointment Heart and Vascular Giuliano Samuel MD Chief Comp: Patient [address] [place] [address] Visit [phone] (Fax) 12/17/2016 Appointment Ophthalmology - Lalito Crockett MD Chief Comp: Patient Specialty [address] [place] [address] Visit [phone] (Fax) Health Maintenance Due Date Last Done [...] Exam 04/21/2011 Influenza Vaccine: Seasonal 12/02/2015 (#1) HCC Annual Coding Diabetes 05/03/2016 12/11/2015, Additional history exists without Complication 05/21/2015, 03/06/2011 DIABETIC: Retinal Eye Exam 12/10/2016 12/11/2015 Results from Last 3 Months Not on file
== END 2016-07-22 13:18 | disposition home or self-care (01) ==
LOC: ER 13:02
DX: Z48.02 Encounter for removal of sutures (principal)

== ENCOUNTER 2017-01-31 11:57 | Emergency (ER) | payer BC, MEDICARE ==
[2017-01-31 12:07] VITALS: BP 137/65
--- NOTE | 2017-01-31 13:02 | ERNOTE ---
ENT HPI Date of Service: 01/31/17 Presenting Symptoms: nosebleed Time Seen by Provider: 01/31/17 12:22 Source: patient, family, RN notes reviewed Exam Limitations: no limitations - Immun/Allergies/Home Medications Immunizations: IMMUNIZATION HX Immunizations Up to Date Yes History of Influenza Vaccine Yes Hx Pneumococcal Vaccination Yes Allergies/Adverse Reactions: Allergies Allergy/AdvReac Type Severity Reaction Status Date / Time Iodinated Contrast- Oral and Allergy Verified 04/29/16 09:30 IV Dye [Iodinated Contrast Media - IV Dye] Home Medications: HOME MEDICATIONS Apixaban [Eliquis] 2.5 mg PO BID 01/31/17 [Last Taken Unknown] Finasteride [Proscar] 5 mg PO DAILY 01/31/17 [Last Taken Unknown] Furosemide [Lasix] 40 mg PO BID 01/31/17 [Last Taken Unknown] Hydrochlorothiazide [Hydrodiuril] 25 mg PO DAILY 01/31/17 [Last Taken Unknown] Insulin Glargine,Hum.rec.anlog [Lantus] 12 units SC BID 01/31/17 [Last Taken Unknown] Isosorbide Mononitrate [Imdur] 60 mg PO DAILY 01/31/17 [Last Taken Unknown] Metoprolol Tartrate 50 mg PO DAILY 01/31/17 [Last Taken Unknown] Multivitamin [One Daily Essential] 1 each PO 01/31/17 [Last Taken Unknown] Ranolazine [Ranexa] 500 mg PO BID 01/31/17 [Last Taken Unknown] Rosuvastatin Calcium [Crestor] 10 mg PO DAILY 01/31/17 [Last Taken Unknown] Tamsulosin HCl 0.4 mg PO DAILY 01/31/17 [Last Taken Unknown] - History of Present Illness Narrative: 81 year old male ambulatory to the ED with his for a nose bleed that began when he blew his nose around 1100. He is on Eliquis. He has been applying pressure without any improvement. Date (Duration): 01/31/17 Time (Timing): 11:00 Prior Treament: Reports: similar symptoms before. Denies: recently seen Review of Systems - Review of Systems Constitutional: Absent: recent illness, fever, chills, malaise EYE: Present: no symptoms reported ENT: Present: See HPI Respiratory: Absent: shortness of breath, cough Cardiology: Absent: palpitations, syncope Gastrointestinal/Abdominal: Absent: nausea, vomiting, abdominal pain Genitourinary: Present: no symptoms reported Musculoskeletal: Present: no symptoms reported Skin: Present: no symptoms reported Neurological: Absent: headache, dizziness/light-headedness Endocrine: Present: no symptoms reported Hematologic/Lymphatic: Present: easy bruising, easy bleeding Psych: Present: no symptoms reported - Patient's Past Medical History Patient History - Medical: Diabetes Type 2, Renal Disease Patient History - Cardiac/Respiratory: Atrial Fibrillation, Coronary Heart Disease, CHF, Hypertension, Hyperlipidemia Patient History - Cancer: No Hx of Cancer Patient History - Surgical Procedures: Angioplasty, Coronary Bypass Surgery, Cardiac stent, Pacemaker Patient History - Other: None - Family History Mother Family History - Medical: , Diabetes Type 2 Family History - Cardiac/Respiratory: CVA/Stroke, Myocardial Infarction - Social History Living Situations: home Abuse History: No History of abuse Psych History: No pertinent hx Alcohol Use: none Drug Use: none - Immunizations Immunizations Up to Date: Yes Hx Pneumococcal Vaccination: Yes History of Influenza Vaccine: Yes Physical Exam - Physical Exam General Appearance: Present: wd/wn, alert, no apparent distress Head Exam: Present: no evidence of injury, active bleeding - Left nare Ears, Nose, Throat: Present: normal except - - Left epistaxis, other - Blood present in posterior pharynx Neck: Present: normal inspection, nontender, supple Respiratory: Present: no respiratory distress, normal breath sounds, no accessory muscle use, lungs clear Cardiovascular/Chest: Present: regular rate, rhythm, normal peripheral pulses, systolic murmur Extremity Exam: Present: normal inspection, normal range of motion Neurological Exam: Present: alert, oriented, normal mood/affect, no motor/ sensory deficits Skin Exam: Present: warm/dry, other - Purpura and ecchymosis noted on forearms ED Progress - Vital Signs Patient's Vital Signs:: I have reviewed the patient's vital signs. Vital Signs: Vital Signs 01/31/17 12:03 Temperature 36.5 C Pulse Rate 70 Respiratory 12 Rate Blood Pressure 137/65 O2 Sat by Pulse 99 Oximetry - Progress/Reassessment Chief Complaint: Nose Bleed Progress:: Improved Plan - Plan Plan: Bleeding had subsided with pressure and ice until the patient cleared his throat and began bleeding profusely from the left nare again. Rhino rocket inserted in left nare. Bleeding subsided. Patient tolerated well. Departure Clinical Impression: Epistaxis - Departure Disposition: Home self-care Condition: Stable Instructions: Nosebleed, [id number] Additional Instructions: Leave packing in place - contact your doctor to have removed tomorrow Return to ER if needed Referrals: Suresh Delarosa MD [Primary Care Provider] -
== END 2017-01-31 13:48 | disposition home or self-care (01) ==
LOC: ER 11:57
PROC: 2Y41X5Z Packing of Nasal Region using Packing Material (ICD-10-PCS; principal; 2017-01-31)
DX: R04.0 Epistaxis (principal); E11.9 Type 2 diabetes mellitus without complications; N28.9 Disorder of kidney and ureter, unspecified; I48.91 Unspecified atrial fibrillation; Z79.01 Long term (current) use of anticoagulants; I25.2 Old myocardial infarction; I10 Essential (primary) hypertension; E78.5 Hyperlipidemia, unspecified

== ENCOUNTER 2017-02-01 07:11 | Emergency (ER) | payer MEDICARE, BC ==
[2017-02-01 07:19] VITALS: BP 160/79
--- NOTE | 2017-02-01 07:28 | ERNOTE ---
Medical Problem HPI - General Chief Complaint: General Assessment Time Seen by Provider: 02/01/17 07:23 Source: patient, RN notes reviewed Exam Limitations: no limitations - Immun/Allergies/Home Medications Immunizations: IMMUNIZATION HX Immunizations Up to Date Yes History of Influenza Vaccine Yes Hx Pneumococcal Vaccination Yes Allergies/Adverse Reactions: Allergies Iodinated Contrast- Oral and IV Dye [Iodinated Contrast Media - IV Dye] Allergy (Verified 02/01/17 07:19) Home Medications: HOME MEDICATIONS Apixaban [Eliquis] 2.5 mg PO BID 01/31/17 [Last Taken Unknown] Finasteride [Proscar] 5 mg PO DAILY 01/31/17 [Last Taken Unknown] Furosemide [Lasix] 40 mg PO BID 01/31/17 [Last Taken Unknown] Hydrochlorothiazide [Hydrodiuril] 25 mg PO DAILY 01/31/17 [Last Taken Unknown] Insulin Glargine,Hum.rec.anlog [Lantus] 12 units SC BID 01/31/17 [Last Taken Unknown] Isosorbide Mononitrate [Imdur] 60 mg PO DAILY 01/31/17 [Last Taken Unknown] Metoprolol Tartrate 50 mg PO DAILY 01/31/17 [Last Taken Unknown] Multivitamin [One Daily Essential] 1 each PO 01/31/17 [Last Taken Unknown] Ranolazine [Ranexa] 500 mg PO BID 01/31/17 [Last Taken Unknown] Rosuvastatin Calcium [Crestor] 10 mg PO DAILY 01/31/17 [Last Taken Unknown] Tamsulosin HCl 0.4 mg PO DAILY 01/31/17 [Last Taken Unknown] - History of Present History Narrative: Patient here yesterday with a nose bleed. He did fine initially, but blew his nose and the bleeding started profusely again so a Rhino Rocket was applied to that nostril. He presents today stating that he cannot stand the pain any longer and he wishes the Rhino Rocket to be removed. Timing: constant, getting worse Severity: severe Modifying Factors - (Improves): Present: other - nothing Modifying Factors - (Worsens): Present: movement Review of Systems - Review of Systems Constitutional: Present: recent illness - nosebleed. Absent: fever, chills EYE: Present: eye pain, tearing ENT: Present: other - Rhino rocket in left nares, removed after air withdrawn without difficulty, minimal bleeding Respiratory: Absent: shortness of breath, cough Cardiology: Absent: chest pain Gastrointestinal/Abdominal: Absent: nausea, vomiting, diarrhea Genitourinary: Absent: frequency, pain, dysuria Musculoskeletal: Absent: back pain, muscle pain Skin: Present: no symptoms reported Neurological: Present: no symptoms reported Endocrine: Present: no symptoms reported Hematologic/Lymphatic: Present: easy bleeding - Patient's Past Medical History Patient History - Medical: Diabetes Type 2, Renal Disease Patient History - Cardiac/Respiratory: Atrial Fibrillation, Coronary Heart Disease, CHF, Hypertension, Hyperlipidemia Patient History - Cancer: No Hx of Cancer Patient History - Surgical Procedures: Angioplasty, Coronary Bypass Surgery, Cardiac stent, Pacemaker Patient History - Other: None - Family History Mother Family History - Medical: , Diabetes Type 2 Family History - Cardiac/Respiratory: CVA/Stroke, Myocardial Infarction - Social History Living Situations: home Abuse History: No History of abuse Psych History: No pertinent hx Smoking Status: Never smoker Alcohol Use: none Drug Use: none - Immunizations Immunizations Up to Date: Yes Hx Pneumococcal Vaccination: Yes History of Influenza Vaccine: Yes Physical Exam - Physical Exam General Appearance: Present: wd/wn, alert, moderate distress Head Exam: Present: normal inspection, no evidence of injury Eye Exam: Normal inspection: bilateral, PERRL: bilateral, EOMI: bilateral, Sclera injection: left, Eye drainage: left Ears, Nose, Throat: Present: normal except - - Rhino rocket in left nares with minimal blood, some mucous Neck: Present: normal inspection, nontender, supple, full range of motion Respiratory: Present: no respiratory distress, normal breath sounds, no accessory muscle use Cardiovascular/Chest: Present: regular rate, rhythm, no murmur Gastrointestinal/Abdominal: Present: normal bowel sounds, nontender, nondistended, soft Back Exam: Present: normal inspection, normal range of motion Extremity Exam: Present: normal inspection, non-tender, normal range of motion Neurological Exam: Present: alert, oriented, normal mood/affect, no motor/ sensory deficits Skin Exam: Present: normal color, warm/dry ED Progress - Vital Signs Patient's Vital Signs:: I have reviewed the patient's vital signs. Vital Signs: Vital Signs 02/01/17 07:14 Temperature 36.5 C Pulse Rate 70 Respiratory 16 Rate Blood Pressure 160/79 O2 Sat by Pulse 98 Oximetry - Progress/Reassessment Chief Complaint: General Assessment Procedures Location: Left nares How removed: Other - air withdrawn from Rhino Rocket, then Rhino Rocket withdrawn from left nares without difficulty Complications: Pt maru procedure well Comments: Patient counseled about further bleeding, advised very strongly not to blow his nose. Plan - Plan Plan: Patient to not blow his nose. Given a nasal clip in case of further bleeding. Counseled to return to the ED if the bleeding worsens or persists. Departure Clinical Impression: Encounter for removal of nasal packing - Departure Disposition: Home self-care Condition: Good Instructions: Nosebleed, [id number], Managing Your High Blood Pressure Referrals: Suresh Delarosa MD [Primary Care Provider] - (1-2 days)
== END 2017-02-01 07:53 | disposition home or self-care (01) ==
LOC: ER 07:11
DX: Z48.00 Encounter for change or removal of nonsurgical wound dressing (principal)